=== PATIENT | female | born 1965 | race Caucasian/White ===

== ENCOUNTER 2020-06-04 08:58 | Day surgery (SDC) | payer OTHER, SELFPAY ==
[2020-06-04 09:12] VITALS: BMI 20.5
[2020-06-04 09:19] VITALS: BP 121/72; PULSE 56; RESP 18; TEMP 37.2; O2SAT 100
--- NOTE | 2020-06-04 09:59 | MHC.SHP ---
Pre-Procedural Eval Section B Chief Complaint: SCREENING Relevant Family History (Specify if Yes): No Relevant Social History: None Present Medications: see Short Stay Collaborative assessment Medical History: No relevant PMH History of Previous Operations: No relevant previous surgery Allergies: Allergies Allergy/AdvReac Type Severity Reaction Status Date / Time No Known Allergies Allergy Verified 05/29/20 15:08 Review of Systems Sugical H&P ROS: Negative: Constitution, Cardiovascular, Respiratory, Neurological, Psychiatric, Hem-Onc, Allergic/Immunologic, Gastrointestinal, Genitourinary, Musculoskeletal, Integumentary, Endocrine and Eyes/Ears/Nose/Throat Exam Surgical H&P Exam: Normal: HEENT, Normal: Heart, Normal: Lungs, Normal: Extremities, Normal: Abdomen, Normal: Skin and Normal: Neurological Plan Diagnosis/Plan: Unchanged Patient has been examined and remains a candidate for the planned procedure
--- NOTE | 2020-06-04 10:05 | P.CONAN_ITS ---
[facility] Past Medical History Medical History Asthma History of headache Surgical History Surgical History Hx of tonsillectomy Social History Social History Smoking Status: Never smoker Use of substances other than those prescribed or required for medical reasons: No Advance Directives: No Advance Directives Information Provided: No Meds Allergies Allergy/AdvReac Type Severity Reaction Status Date / Time No Known Allergies Allergy Verified 05/29/20 15:08 Home Medications Medication Instructions Recorded Confirmed Type fluticasone propionate 2 spray INTRANASAL DAILY 05/29/20 05/29/20 History loratadine 1 tab PO DAILY 05/29/20 05/29/20 History sumatriptan succinate 25 mg PO BID PRN 05/29/20 05/29/20 History Exam Exam Date and Time: June 04, 2020 1005 Height,Weight and Vital Signs: Height 5 ft 6 in Weight 57.606 kg Last Vital Signs Temp 98.9 F 06/04/20 09:19 Pulse 56 06/04/20 09:19 Resp 18 06/04/20 09:19 BP 121/72 06/04/20 09:19 Pulse Ox 100 06/04/20 09:19 Airway Mallampati Class: I TM Dist: >3cm Neck ROM: Full Loose/Missing/Broken Teeth: No Heart: rrr Lungs: nl Other: ao Assessment and Plan Assessment Anesthesia Assessment: Anesthesia Plan Discussed and Chart Reviewed Final Anesthetic Review NPO: Yes ASA Class: I Final Preanesthetic Review: No Changes in Pt Med Stat, Meds/Allgs Chart Reviewed, Consent Obtained/Reviewed and Anes Risks/Benef Reviewed Patient Risk: Low Procedure Risk: Low Anesthetic Plan Anesthetic Plan: MAC: Disposition: Standard PACU
[2020-06-04] MEDS: Lactated Ringers 1,000 ML 50 ML IVCONT (10:08)
--- NOTE | 2020-06-04 10:53 | P.OP_ITS ---
Operative Note Operative Note Date of Service: 06/04/20 Narrative: Operative Information Procedure Description: Colonoscopy COLONOSCOPY Instrument: Olympus variable stiffness pediatric scope 190L Colonoscopy Monitoring: Vital signs and clinical assessment, continuous EKG monitoring, Pulse oximetry, Carbon Dioxide monitoring and blood pressure monitoring were done throughout the procedure. Colon withdrawal time was 30 minutes. Procedure: The patient was placed in the left lateral decubitis position and pre-procedure medications were administered. After a digital rectal examination of the ano-rectum, the video colonoscope was inserted into the rectum and advanced through the colon to the cecum/TI. The colonoscope was slowly withdrawn in a retrograde panoramic fashion and the colon mucosa was carefully examined including a retroflexed view of the rectum. Findings and interventions are described below. Procedure Difficulty:easy Findings: Terminal Ileum-normal Cecum: 14-15 mm flat polyp with mucous cap noted in cecum, this was raised with several cc of ORISE. Once there was a safe cushion, the polyp was removed using hot snare. The edges were ablated with soft tip coag and 2 clips applied to close defect. Ascending Colon: normal Transverse Colon -normal Descending Colon:normal Sigmoid Colon: normal Rectum: Retroflexion with small internal hemorrhoids, grade I Anorectum - normal Colon preparation: [place] Bowel Preparation Scale Right colon; 3 Transverse colon: 2 Left colon; 1 (0 = Unprepared colon segment with mucosa not seen due to solid stool that cannot be cleared. 1 = Portion of mucosa of the colon segment seen, but other areas of the colon segment not well seen due to staining, residual stool and/or opaque liquid. 2 = Minor amount of residual staining, small fragments of stool and/or opaque liquid, but mucosa of colon segment seen well. 3 = Entire mucosa of colon segment seen well with no residual staining, small fragments of stool or opaque liquid) Impression and Post Procedure Diagnosis: polyp small internal hemorrhoids Plan: High fiber diet leaflet Avoid straining at stool, epsom salts and sitz bath, anusol supps or cream Repeat Colonoscopy in 2-3 years or earlier if clinically indicated 7 course of Augmentin to prevent post polypectomy syndrome Above findings were reviewed with the patient and relevant handouts were provided if indicated.
--- NOTE | 2020-06-04 10:53 | PM.OP ---
Brief Operative Note Date of Service: 06/04/20 Pre-op diagnosis: colon screen Post-op diagnosis: same Procedure: see op note Surgeon: Terry Cobb MD Anesthesia: MAC Estimated blood loss (mL): 0 Condition: stable Disposition: PACU
[2020-06-04 11:00] VITALS: BP 108/65; PULSE 62; RESP 17; TEMP 36.6; O2SAT 98
[2020-06-04 11:15] VITALS: BP 114/72; PULSE 52; RESP 18; O2SAT 100
[2020-06-04 11:30] VITALS: BP 116/70; PULSE 61; RESP 18; O2SAT 100
== END 2020-06-04 12:05 | disposition home or self-care (01) ==
PROVIDERS: PCP Internal Medicine; Visit Provider Internal Medicine Gastroenterology
PROC: 0DJD8ZZ Inspection of Lower Intestinal Tract, Via Natural or Artificial Opening Endoscopic (ICD-10-PCS; CPT 45378; principal; 2020-06-04 10:30)
DX: Z12.11 Encounter for screening for malignant neoplasm of colon (principal); D12.0 Benign neoplasm of cecum; K64.0 First degree hemorrhoids; J45.909 Unspecified asthma, uncomplicated; G43.909 Migraine, unspecified, not intractable, without status migrainosus; Z79.51 Long term (current) use of inhaled steroids; Z79.899 Other long term (current) drug therapy
CPT/HCPCS: 45385; 45381; 88305

== ENCOUNTER → 2021-04-11 09:52 | Outpatient (BNVA) | payer OTHER, SELFPAY | PROVIDERS: PCP Internal Medicine; Referring Provider Internal Medicine; Visit Provider Physician Assistant ==

== ENCOUNTER 2021-05-08 10:25 | Day surgery (SDC) | payer OTHER, SELFPAY ==
[2021-05-03 14:06] VITALS: BMI 21.1
--- NOTE | 2021-05-07 10:38 | HO.ANESPROP2 ---
Documented by User: Jenniffer Valentin NP 05/07/21 10:39 HPI - Anesthesia Eval Consult details Narrative: 56yo F for Colonoscopy s/p colo with TIVA 05/2020 [facility] Active Problems Active Problems: All Active Problems (Updated 04/11/21 @ 10:27 by Geraldine Iniguez PA-C) External hemorrhoid (Acute) Colorectal polyps (Acute) Past Medical History Medical History Asthma History of headache Family History Family History Mother Breast cancer Surgical History Surgical History Hx of colonoscopy Hx of tonsillectomy Social History Social History (Updated 04/11/21 @ 10:18 by Geraldine Iniguez PA-C) Household Members Other:: - 2 daughters Alcohol intake: current Patient Tobacco Use Status: Never used Tobacco Use of substances other than those prescribed or required for medical reasons: No Are you DNR?: No Advance Directives: No Advance Directives Information Provided: Yes 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[employer] Allergies Allergy/AdvReac Type Severity Reaction Status Date / Time No Known Allergies Allergy Verified 05/08/21 11:19 Home Medications Medication Instructions Recorded Confirmed Last Taken Type fluticasone propionate 50 2 spray INTRANASAL DAILY 05/29/20 05/29/20 Unknown History mcg/actuation nasal spray,suspension loratadine 10 mg tablet 1 tab PO DAILY 05/29/20 05/29/20 Unknown History sumatriptan succinate 25 mg tablet 25 mg PO BID PRN 05/29/20 05/29/20 Unknown History Exam Exam Date and Time: May 07, 2021 1039 Height,Weight and Vital Signs: Height 5 ft 6 in Weight 59.421 kg Assessment and Plan Assessment Anesthesia Assessment: Chart Reviewed Documented by User: Estefani Calvert MD 05/08/21 11:48 [facility] Past Medical History Medical History Asthma History of headache Functional capacity: independent ambulation Patient : No Family History Family History Mother Breast cancer Surgical History Surgical History Hx of colonoscopy Hx of tonsillectomy History of Problems with Anesthesia: No Social History Social History (Updated 04/11/21 @ 10:18 by Geraldine Iniguez PA-C) Household Members Other:: - 2 daughters Alcohol intake: current Patient Tobacco Use Status: Never used Tobacco Use of substances other than those prescribed or required for medical reasons: No Are you DNR?: No Advance Directives: No Advance Directives Information Provided: Yes 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[employer] Allergies Allergy/AdvReac Type Severity Reaction Status Date / Time No Known Allergies Allergy Verified 05/08/21 11:19 Home Medications Medication Instructions Recorded Confirmed Last Taken Type fluticasone propionate 50 2 spray INTRANASAL DAILY 05/29/20 05/29/20 Unknown History mcg/actuation nasal spray,suspension loratadine 10 mg tablet 1 tab PO DAILY 05/29/20 05/29/20 Unknown History sumatriptan succinate 25 mg tablet 25 mg PO BID PRN 05/29/20 05/29/20 Unknown History Exam Airway Mallampati Class: II TM Dist: >3cm Neck ROM: Full Heart: RRR Lungs: CtA Assessment and Plan Final Anesthetic Review History of Problems with Anesthesia: No
--- NOTE | 2021-05-08 10:41 | MHC.SHP ---
Pre-Procedural Eval Section A Date of Service: 05/08/21 Section B Chief Complaint: Screening Relevant Family History (Specify if Yes): No Relevant Social History: None Present Medications: see Short Stay Collaborative assessment Medical History: Significant History (Asthma History of headache) History of Previous Operations: Relevant previous surgery/procedure and date(s) (tonsilectomy, colonoscopy) Allergies: Allergies Allergy/AdvReac Type Severity Reaction Status Date / Time No Known Allergies Allergy Verified 05/29/20 15:08 Review of Systems Sugical H&P ROS: Negative: Constitution, Cardiovascular, Respiratory, Neurological, Psychiatric, Hem-Onc, Allergic/Immunologic, Gastrointestinal, Genitourinary, Musculoskeletal, Integumentary, Endocrine and Eyes/Ears/Nose/Throat Exam Surgical H&P Exam: Normal: HEENT, Normal: Heart, Normal: Lungs, Normal: Extremities, Normal: Abdomen, Normal: Skin and Normal: Neurological Plan Diagnosis/Plan: Unchanged I have reviewed the history and physical and performed a pertinent physical examination on my patient. No changes have occurred unless specified.
[2021-05-08 11:11] VITALS: BP 139/54; PULSE 71; RESP 16; TEMP 36.8; O2SAT 100
--- NOTE | 2021-05-08 11:57 | P.OP_ITS ---
Operative Note Operative Note Date of Service: 05/08/21 Narrative: Operative Information Procedure Description: Colonoscopy COLONOSCOPY Instrument: Olympus variable stiffness pediatric scope 190L Colonoscopy Monitoring: Vital signs and clinical assessment, continuous EKG monitoring, Pulse oximetry, Carbon Dioxide monitoring and blood pressure monitoring were done throughout the procedure. Colon withdrawal time was 17 minutes. Procedure: The patient was placed in the left lateral decubitis position and pre-procedure medications were administered. After a digital rectal examination of the ano-rectum, the video colonoscope was inserted into the rectum and advanced through the colon to the cecum/TI. The colonoscope was slowly withdrawn in a retrograde panoramic fashion and the colon mucosa was carefully examined including a retroflexed view of the rectum. Findings and interventions are described below. Procedure Difficulty: easy Findings: extensive cleaning done Terminal Ileum-normal Cecum:normal Ascending Colon: normal Transverse Colon -normal Descending Colon:normal Sigmoid Colon: normal Rectum: Retroflexion with small internal hemorrhoids, grade I Anorectum - normal Colon preparation: [place] Bowel Preparation Scale Right colon; 2 Transverse colon: 2 Left colon; 2 (0 = Unprepared colon segment with mucosa not seen due to solid stool that cannot be cleared. 1 = Portion of mucosa of the colon segment seen, but other areas of the colon segment not well seen due to staining, residual stool and/or opaque liquid. 2 = Minor amount of residual staining, small fragments of stool and/or opaque liquid, but mucosa of colon segment seen well. 3 = Entire mucosa of colon segment seen well with no residual staining, small fragments of stool or opaque liquid) Impression and Post Procedure Diagnosis: internal hemorrhoids Plan: High fiber diet leaflet Avoid straining at stool, epsom salts and sitz bath, anusol supps or cream Repeat Colonoscopy in 3-5 years or earlier if clinically indicated Above findings were reviewed with the patient and relevant handouts were provided if indicated.
--- NOTE | 2021-05-08 11:57 | PM.OP ---
Brief Operative Note Date of Service: 05/08/21 Pre-op diagnosis: hx of colon polyps Post-op diagnosis: same Procedure: see op note Surgeon: Terry Cobb MD Anesthesia: MAC Was an Insurance And Benefits Clerk used for this Procedure?: No Estimated blood loss (mL): 0 Condition: stable Disposition: PACU
--- NOTE | 2021-05-08 12:22 | HO.ANESPROP2 ---
[facility] Active Problems Active Problems: All Active Problems (Updated 04/11/21 @ 10:27 by Geraldine Iniguez PA-C) External hemorrhoid (Acute) Colorectal polyps (Acute) Past Medical History Medical History Asthma History of headache Functional capacity: independent ambulation Family History Family History Mother Breast cancer Family history of problems with anesthesia: No Surgical History Surgical History Hx of colonoscopy Hx of tonsillectomy History of Problems with Anesthesia: No Social History Social History (Updated 04/11/21 @ 10:18 by Geraldine Iniguez PA-C) Household Members Other:: - 2 daughters Alcohol intake: current Patient Tobacco Use Status: Never used Tobacco Use of substances other than those prescribed or required for medical reasons: No Are you DNR?: No Advance Directives: No Advance Directives Information Provided: Yes Patient : No 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 Allergy/AdvReac Type Severity Reaction Status Date / Time No Known Allergies Allergy Verified 05/08/21 11:19 Active Medications: Current Medications Albuterol Sulfate (Albuterol Sulfate (0.083%) 2.5 Mg/3 Ml Vial.Neb) 2.5 mg INHALE ONCE PRN PRN Reason: Shortness of Breath/Wheezing Lactated Ringer's (Lr) 1,000 mls @ 100 mls/hr IVCONT .Q10H AKASH Home Medications Medication Instructions Recorded Confirmed Last Taken Type fluticasone propionate 50 2 spray INTRANASAL DAILY 05/29/20 05/29/20 Unknown History mcg/actuation nasal spray,suspension loratadine 10 mg tablet 1 tab PO DAILY 05/29/20 05/29/20 Unknown History sumatriptan succinate 25 mg tablet 25 mg PO BID PRN 05/29/20 05/29/20 Unknown History Exam Exam Date and Time: May 08, 2021 1222 Height,Weight and Vital Signs: Height 5 ft 6 in Weight 59.421 kg Last Vital Signs Temp 98.3 F 05/08/21 11:11 Pulse 71 05/08/21 11:11 Resp 16 05/08/21 11:11 BP 139/54 L 05/08/21 11:11 Pulse Ox 100 05/08/21 11:11 Airway Mallampati Class: II TM Dist: >3cm Neck ROM: Full Heart: RRR Lungs: CTA Assessment and Plan Final Anesthetic Review Family History of Problems with Anesthesia: No History of Problems with Anesthesia: No
[2021-05-08 12:45] VITALS: BP 100/55; PULSE 57; RESP 16; TEMP 36.2; O2SAT 100
[2021-05-08 13:02] VITALS: BP 106/56; PULSE 53; RESP 18; TEMP 36.2; O2SAT 100
--- NOTE | 2021-05-08 14:24 | HO.POSTANES ---
Post Anesthesia Evaluation Post Anesthesia Evaluation Vital Signs: Vital Signs Temp Pulse Resp BP Pulse Ox 05/08/21 13:02 97.1 F 53 18 106/56 L 100 05/08/21 12:45 97.1 F 57 16 100/55 L 100 05/08/21 11:11 98.3 F 71 16 139/54 L 100 Anesthesia: Monitored Mental Status: Awake Pain Control: Satisfactory Hydration: Adequate Anesthesia-Related Issues: No Anes. Related Issues
== END 2021-05-08 14:04 | disposition home or self-care (01) ==
PROVIDERS: PCP Internal Medicine; Visit Provider Internal Medicine Gastroenterology
PROC: 0DJD8ZZ Inspection of Lower Intestinal Tract, Via Natural or Artificial Opening Endoscopic (ICD-10-PCS; CPT 45378; principal; 2021-05-08 11:50)
DX: Z12.11 Encounter for screening for malignant neoplasm of colon (principal); Z86.010 Personal history of colon polyps; K64.0 First degree hemorrhoids; J45.909 Unspecified asthma, uncomplicated; F41.9 Anxiety disorder, unspecified; Z79.51 Long term (current) use of inhaled steroids; Z79.899 Other long term (current) drug therapy
CPT/HCPCS: 45378; J3010